=== PATIENT | female | born 1980 | race Caucasian/White ===

== ENCOUNTER 2019-03-12 15:41 | Emergency (ER) | payer OTHER ==
[2019-03-12 15:56] VITALS: RESP 18
[2019-03-12 16:26] LABS: Amphetamine Screen,Urine Not Detected (NotDetected); Barbiturate Screen,Urine Not Detected (NotDetected); Benzodiazepines Screen,Urine Not Detected (NotDetected); Cocaine Screen,Urine Not Detected (NotDetected); Methadone Screen, Urine Not Detected (NotDetected); Opiate Screen,Urine Not Detected (NotDetected); Oxycodone Screen, Urine Not Detected (NotDetected); Phencyclidine Screen,Urine Not Detected (NotDetected); Tricyclic Antidepressant,Urine Not Detected (NotDetected); Urn Cannabinoid Scrn Detected (NotDetected)
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
[2019-03-12 17:47] LABS: Appearance,Urine Clear (Clear); Bilirubin,Urine Negative (Negative); Blood,Urine Negative (Negative); Color,Urine Yellow; Glucose,Urine (UA) Negative (Negative); Ketones,Urine Negative (Negative); Leukocyte Esterase,Urine Negative (Negative); Nitrite,Urine Negative (Negative); PH, Urine 6.5 (5.0-8.0); Protein,Urine Negative (Negative); Urobilinogen,Urine <2.0 mg/dL (<2.0)
[2019-03-12 19:57] VITALS: BP 147/81; PULSE 75; TEMP 98
== END 2019-03-12 21:24 | disposition home or self-care (01) ==
LOC: EC 15:41
DX: F31.9 Bipolar disorder, unspecified (principal); R22.0 Localized swelling, mass and lump, head; G43.909 Migraine, unspecified, not intractable, without status migrainosus; F41.9 Anxiety disorder, unspecified; F17.200 Nicotine dependence, unspecified, uncomplicated; Z79.51 Long term (current) use of inhaled steroids; Z79.1 Long term (current) use of non-steroidal anti-inflammatories (NSAID); Z79.899 Other long term (current) drug therapy; Z88.5 Allergy status to narcotic agent
CPT/HCPCS: 80306; 81003; 81025; 82075; 99284

== ENCOUNTER 2019-10-15 11:55 | Emergency (ER) | payer OTHER ==
[2019-10-15] MEDS ORDERED: SODIUM CHLORIDE 0.9% 1,000 ML IV ONE (12:30)
[2019-10-15] MEDS ORDERED: CLINDAMYCIN 600 MG in DEXTROSE 5% IN WATER 50 ML IVPB STA ×2 (12:31)
[2019-10-15] MEDS ORDERED: LIDOCAINE/EPINEPHR/TETRACAINE 5 ML BOTTLE TOPICAL ONE (12:31)
--- NOTE | 2019-10-15 12:56 | ED ---
ENT HPI - General Chief complaint: ENT Stated complaint: recheck - abscess in sinus Time Seen by Provider: 10/15/19 12:11 Source: patient, RN notes reviewed, old records reviewed Mode of arrival: ambulatory Limitations: no limitations - History of Present Illness Initial comments: This Patient is a 38-year-old female presents today for recheck for nasal labial abscess. Patient reports that she's been taking her antibiotics clindamycin as prescribed. She states she attempted to follow-up with ENT with a would not see her initially to return should she has another appointment with a second ENT next Tuesday. Patient states that she feels that the initial abscess is closed over. Patient reports that she also will be out of her pain medication within the next day and is not able to follow-up with the ENT until next week. - Related Data Home Medications Medication Instructions Recorded Confirmed Estrogens, Conjugated [Premarin] 0.9 mg PO DAILY 06/23/14 10/13/19 Albuterol Inhaler [Ventolin Hfa 2 puff INHALATION RT-Q4H PRN 03/12/19 10/13/19 Inhaler] Albuterol Nebulized [Ventolin 2.5 mg INHALATION RT-QID PRN 03/12/19 10/13/19 Nebulized] Beclomethasone Dipropionate [Qvar 2 puff INHALATION RT-BID 03/12/19 10/13/19 80 mcg] Butalb/APAP/Caff 50-325-40Mg 1 tab PO Q6H PRN 03/12/19 10/13/19 [Fioricet 50-325-40] EPINEPHrine (Auto Inject) [Epipen] 0.3 mg IM ONCE PRN 03/12/19 10/13/19 Fluticasone Nasal [place] [Flonase 1 - 2 spray EA NOSTRIL HS 03/12/19 10/13/19 Nasal [place]] Gabapentin 600 mg PO TID 03/12/19 10/13/19 Hydrocortisone Cream 1 applic TOPICAL BID 03/12/19 10/13/19 [Hydrocortisone 2.5% Cream] Ibuprofen [Motrin] 800 mg PO TID 03/12/19 10/13/19 NIFEdipine [NIFEdipine ER] 90 mg PO DAILY 03/12/19 10/13/19 Nystatin [Nystop] 1 applic TOPICAL BID 03/12/19 10/13/19 Omeprazole 20 mg PO BID 03/12/19 10/13/19 Low Iron 1 tab PO DAILY 03/12/19 10/13/19 Rizatriptan Benzoate [Maxalt SUSTAINABILITY COACH] 10 mg PO DAILY PRN 03/12/19 10/13/19 Topiramate [Topamax] 200 mg PO BID 03/12/19 10/13/19 buPROPion HCL [Wellbutrin SR] 150 mg PO BID 03/12/19 10/13/19 diphenhydrAMINE [Benadryl] 50 mg PO Q6H PRN 03/12/19 10/13/19 tiZANidine [Zanaflex] 4 mg PO Q6H PRN 03/12/19 10/13/19 traZODone HCL 300 mg PO HS 03/12/19 10/13/19 Cariprazine HCl [Vraylar] 1.5 mg PO DAILY 10/13/19 10/13/19 DULoxetine HCL [Cymbalta] 30 mg PO DAILY 10/13/19 10/13/19 DULoxetine HCL [Cymbalta] 60 mg PO HS 10/13/19 10/13/19 Prazosin [Minipress] 1 mg PO DAILY 10/13/19 10/13/19 hydrOXYzine PAMOATE [Vistaril] 50 mg PO DAILY 10/13/19 10/13/19 hydrOXYzine PAMOATE [Vistaril] 100 mg PO HS 10/13/19 10/13/19 Previous Rx's Medication Instructions Recorded Clindamycin [Cleocin] 300 mg PO TID 7 Days #42 capsule 10/13/19 Fluconazole [Diflucan] 150 mg PO ONCE #3 tab 10/13/19 HYDROcodone/APAP 5-325MG [[place] 1 tab PO Q6HR PRN #10 tab 10/13/19 5-325] Mupirocin 2% Oint [Bactroban 2% 1 applic NASAL QID #60 gm 10/13/19 Oint] HYDROcodone/APAP 5-325MG [[place] 1 tab PO Q6HR PRN #18 tab 10/15/19 5-325] Allergies Allergy/AdvReac Type Severity Reaction Status Date / Time meperidine HCl [From Demerol] Allergy Unknown Verified 10/15/19 12:09 Review of Systems ROS Statement: Those systems with pertinent positive or pertinent negative responses have been documented in the HPI. ROS Other: All systems not noted in ROS Statement are negative. Past Medical History Past Medical History: Fibromyalgia Additional Past Medical History / Comment(s): intersticial cystisis, DJD, migraines History of Any Multi-Drug Resistant Organisms: None Reported Past Surgical History: Hysterectomy, Orthopedic Surgery Additional Past Surgical History / Comment(s): back lumbar fusion Past Psychological History: Anxiety, Bipolar, Depression Smoking Status: Current every day smoker Past Alcohol Use History: None Reported Past Drug Use History: None Reported General Exam - General Exam Comments Initial Comments: Is an 38-year-old female. Alert and oriented. No significant distress. Limitations: no limitations General appearance: alert, in no apparent distress Head exam: Present: atraumatic, normocephalic, normal inspection Eye exam: Present: normal appearance, PERRL, EOMI. Absent: scleral icterus, conjunctival injection, periorbital swelling ENT exam: Present: normal exam, mucous membranes moist, other (Patient has tenderness over the left maxillary sinus and some tenderness and swelling to the left near. Septum appears normal. She hasn't evidence of a closed incision from her initial drainage from the left near abscess.) Neck exam: Present: normal inspection. Absent: tenderness, meningismus, lymphadenopathy Respiratory exam: Present: normal lung sounds bilaterally. Absent: respiratory distress, wheezes, rales, rhonchi, stridor Cardiovascular Exam: Present: regular rate, normal rhythm, normal heart sounds. Absent: systolic murmur, diastolic murmur, rubs, gallop, clicks GI/Abdominal exam: Present: soft, normal bowel sounds. Absent: distended, tenderness, guarding, rebound, rigid Extremities exam: Present: normal inspection, full ROM, normal capillary refill. Absent: tenderness, pedal edema, joint swelling, calf tenderness Back exam: Present: normal inspection Course Vital Signs 10/15/19 10/15/19 12:06 14:47 Temperature 98.0 F 98.3 F Pulse Rate 83 89 Respiratory 20 16 Rate Blood Pressure 106/65 141/82 O2 Sat by Pulse 99 97 Oximetry Medical Decision Making - Medical Decision Making Pleasant 38-year-old female presented today for evaluation for abscess over left near. She was evaluated by the screen writer initially and does at this time have improvement of her facial swelling compared to previously. The initial incision and drainage did open abscess was reopened with 18-gauge needle and forceps.. Fluid was removed. Patient tolerated procedure well. Discussed finishing clindamycin and writing further prescription for pain medication. Discussed that she needs to follow-up with ENT next Tuesday. All questions answered return parameters were discussed. - Lab Data Result diagrams: 10/15/19 12:43 10/15/19 12:43 Lab Results 10/15/19 10/15/19 Range/Units 12:43 12:43 WBC 8.0 (3.8-10.6) k/uL RBC 3.87 (3.80-5.40) m/uL Hgb 11.2 L (11.4-16.0) gm/dL Hct 34.5 (34.0-46.0) % MCV 89.2 (80.0-100.0) fL MCH 29.0 (25.0-35.0) pg MCHC 32.6 (31.0-37.0) g/dL RDW 12.6 (11.5-15.5) % Plt Count 325 (150-450) k/uL Neutrophils % 62 % Lymphocytes % 25 % Monocytes % 5 % Eosinophils % 6 % Basophils % 1 % Neutrophils # 4.9 (1.3-7.7) k/uL Lymphocytes # 2.0 (1.0-4.8) k/uL Monocytes # 0.4 (0-1.0) k/uL Eosinophils # 0.4 (0-0.7) k/uL Basophils # 0.1 (0-0.2) k/uL Sodium 139 (137-145) mmol/L Potassium 4.2 (3.5-5.1) mmol/L Chloride 110 H (98-107) mmol/L Carbon Dioxide 20 L (22-30) mmol/L Anion Gap 9 mmol/L BUN 16 (7-17) mg/dL Creatinine 0.70 (0.52-1.04) mg/dL Est GFR (CKD-EPI)AfAm >90 (>60 ml/min/1.73 sqM) Est GFR (CKD-EPI)NonAf >90 (>60 ml/min/1.73 sqM) Glucose 81 (74-99) mg/dL Calcium 9.2 (8.4-10.2) mg/dL Total Bilirubin 0.2 (0.2-1.3) mg/dL AST 16 (14-36) U/L ALT 11 (4-34) U/L Alkaline Phosphatase 62 (38-126) U/L Total Protein 6.6 (6.3-8.2) g/dL Albumin 4.0 (3.5-5.0) g/dL Disposition Clinical Impression: Abscess of nose Disposition: HOME SELF-CARE Condition: Good Instructions (If sedation given, give patient instructions): Abscess (ED), Warm Compress or Soak (ED) Additional Instructions: Patient advised to follow-up with your primary care physician. Continue clindamycin take the medication as prescribed. Return to ED if any alarming signs or symptoms occur. Prescriptions: HYDROcodone/APAP 5-325MG [[place] 5-325] 1 tab PO Q6HR PRN #18 tab PRN Reason: Pain Is patient prescribed a controlled substance at d/c from ED?: Yes If prescribed controlled substance>3 days was MAPS reviewed?: Prescribed <3 Days If opioid is for acute pain is fill amount 7 days or less?: Yes If Rx opioid, was Start Talking consent form obtained?: Yes Referrals: Sandrine Whiteside MD [Primary Care Provider] - 1-2 days Time of Disposition: 14:05
[2019-10-15 13:07] LABS: Basophils # (A) 0.1 k/uL (0-0.2); Basophils % (A) 1 %; Eosinophils # (A) 0.4 k/uL (0-0.7); Eosinophils % (A) 6 %; HCT 34.5 % (34.0-46.0); HGB 11.2 gm/dL (11.4-16.0); Lymphocytes % (A) 25 %; MCHC 32.6 g/dL (31.0-37.0); MCV 89.2 fL (80.0-100.0); Mean Platelet Volume 6.9; Monocytes # (A) 0.4 k/uL (0-1.0); Monocytes % (A) 5 %; Neutrophils # (A) 4.9 k/uL (1.3-7.7); Neutrophils % (A) 62 %; Platelet Count 325 k/uL (150-450); RBC 3.87 m/uL (3.80-5.40); RDW 12.6 % (11.5-15.5)
[2019-10-15 13:16] LABS: ALT 11 U/L (4-34); AST 16 U/L (14-36); African American GFR (CKD) >90 (>60 ml/min/1.73 sqM); Alkaline Phosphatase 62 U/L (38-126); Anion Gap 9 mmol/L; Blood Urea Nitrogen 16 mg/dL (7-17); Calcium 9.2 mg/dL (8.4-10.2); Carbon Dioxide 20 mmol/L (22-30); Chloride 110 mmol/L (98-107); Glucose 81 mg/dL (74-99); Non-African American GFR(CKD) >90 (>60 ml/min/1.73 sqM); Potassium 4.2 mmol/L (3.5-5.1); Sodium 139 mmol/L (137-145); Total Bilirubin 0.2 mg/dL (0.2-1.3); Total Protein 6.6 g/dL (6.3-8.2)
[2019-10-15] MEDS ORDERED: HYDROmorphone 1 MG/ML 1 ML SYRINGE IVP STA ×2 (13:31→14:37)
[2019-10-15 14:53] VITALS: BP 141/82; PULSE 89; RESP 16; TEMP 98.3
== END 2019-10-15 14:53 | disposition home or self-care (01) ==
LOC: EC 11:55
DX: J34.0 Abscess, furuncle and carbuncle of nose (principal); M79.7 Fibromyalgia; N30.10 Interstitial cystitis (chronic) without hematuria; F31.9 Bipolar disorder, unspecified; F41.9 Anxiety disorder, unspecified; F17.200 Nicotine dependence, unspecified, uncomplicated; Z88.5 Allergy status to narcotic agent; Z79.1 Long term (current) use of non-steroidal anti-inflammatories (NSAID); Z79.51 Long term (current) use of inhaled steroids; Z79.52 Long term (current) use of systemic steroids; Z79.890 Hormone replacement therapy; Z79.899 Other long term (current) drug therapy; Z86.69 Personal history of other diseases of the nervous system and sense organs; Z87.39 Personal history of other diseases of the musculoskeletal system and connective tissue; Z98.1 Arthrodesis status
CPT/HCPCS: 36415; 80053; 85025; 87040; 99284; 10160; 96365; 96375; 96376; J1170